=== PATIENT | male | born 1955 | race Caucasian/White ===

== ENCOUNTER 2019-05-31 13:28 | Outpatient (REF) | payer BC, SELFPAY ==
[2019-06-02 11:47] LABS: HSV 1 DNA Result Negative; HSV 2 DNA Result Negative
== END 2019-05-31 13:48 ==
LOC: NCHCN 13:28
PROVIDERS: PCP Internal Medicine; Visit Provider Specialist/Technologist Athletic Trainer
DX: R21 Rash and other nonspecific skin eruption (principal)
CPT/HCPCS: 87529

== ENCOUNTER 2020-06-05 07:04 | Outpatient (CLI) | payer OTHER, SELFPAY ==
[2020-06-07 11:16] LABS: Patient Race White
[2020-06-07 11:17] LABS: SARS-CoV-2 RNA Undetected (Undetected)
[2020-06-07 11:20] LABS: SARS-CoV-2 Specimen Source Nasopharynx
== END 2020-06-05 07:24 ==
PROVIDERS: PCP Internal Medicine; Visit Provider Internal Medicine
DX: Z11.59 Encounter for screening for other viral diseases (principal)
CPT/HCPCS: U0003

== ENCOUNTER 2021-04-04 18:14 | Outpatient (REF) | payer OTHER, SELFPAY ==
[2021-04-04 22:14] LABS: Calculated LDL 139 mg/dL (<100); Cholesterol 229 mg/dL (<200); HDL Cholesterol 64 mg/dL (40-60); Triglyceride 133 mg/dL (<150)
== END 2021-04-04 18:15 | disposition home or self-care (01) ==
LOC: NCHCN 18:14
PROVIDERS: PCP Internal Medicine; Visit Provider Internal Medicine
DX: Z00.00 Encounter for general adult medical examination without abnormal findings (principal); Z13.220 Encounter for screening for lipoid disorders
CPT/HCPCS: 80061

== ENCOUNTER 2021-06-26 11:00 | Emergency (ER) | payer OTHER, SELFPAY ==
[2021-06-26 11:05] VITALS: BP 140/81; PULSE 63; RESP 16; TEMP 36; O2SAT 95
--- NOTE | 2021-06-26 11:30 | DI.RAD_ITS ---
Exam(s) XR SHOULDER LT COMPLETE 2+V EXAM: XR SHOULDER LT COMPLETE 2+V CLINICAL HISTORY: shoulder and clavicle pain post fall with ecchymos. TECHNIQUE: 2D digital imaging was performed. COMPARISON: No exams were available for comparison FINDINGS: No evidence of fracture or dislocation of the glenohumeral joint although there are moderate degenera tive changes in the glenohumeral joint noted. The main finding here is an angulated fracture at the midshaft of the ipsilateral left clavicle. Deg enerative changes in the AC joint but no distraction of the AC joint. IMPRESSION: The main acute finding here is an angulated midshaft fracture of the left clavicle. DATA REPOSITORY: RADIATION DOSE DELIVERED:
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
== END 2021-06-26 12:49 | disposition home or self-care (01) ==
PROVIDERS: Emergency Provider Physician Assistant; PCP Internal Medicine
DX: S42.022A Displaced fracture of shaft of left clavicle, initial encounter for closed fracture (principal); V18.0XXA Pedal cycle driver injured in noncollision transport accident in nontraffic accident, initial encounter; Y93.55 Activity, bike riding
CPT/HCPCS: 23500; 73030

== ENCOUNTER 2021-07-05 11:19 | Outpatient (CLI) | payer OTHER, SELFPAY ==
--- NOTE | 2021-07-05 11:00 | DI.RAD_ITS ---
Exam(s) XR CLAVICLE LT LIMITED 1V EXAM: XR CLAVICLE LT LIMITED 1V CLINICAL HISTORY: left clavicle fracture TECHNIQUE: 2D digital imaging was performed of the left clavicle. One images were obtained. AP view s were obtained. COMPARISON: CR XR SHOULDER LT COMPLETE 2+V from 06/26/2021 CR XR SHOULDER LT COMPLETE 2+V from 06/26/2021 FINDINGS: BONES: There is again seen a fracture of the midshaft of the left clavicle. The apex of the fracture is directed cephalad. The fracture appears has a slightly more acute angle compared to the prior ex amination. No bony destructive lesion is seen. JOINTS: No dislocation present. SOFT TISSUE: Normal. IMPRESSION: Left clavicular fracture as described. DATA REPOSITORY: RADIATION DOSE DELIVERED:
== END 2021-07-05 11:20 | disposition home or self-care (01) ==
LOC: DIORS 11:19
PROVIDERS: PCP Internal Medicine; Referring Provider Internal Medicine; Visit Provider Physician Assistant Surgical
DX: S42.022A Displaced fracture of shaft of left clavicle, initial encounter for closed fracture (principal); X58.XXXA Exposure to other specified factors, initial encounter
CPT/HCPCS: 73000

== ENCOUNTER 2022-10-19 15:59 | Emergency (ER) | payer MEDICARE, BC, SELFPAY ==
--- NOTE | 2022-10-19 16:00 | DI.RAD_ITS ---
Exam(s) XR HAND LT COMPLETE XR WRIST LT COMPLETE EXAM: XR WRIST LT COMPLETE and XR hand LT complete CLINICAL HISTORY: fall ?fx. TECHNIQUE: 2D digital imaging was performed of the left wrist. Six images were obtained. PA, obliq ue and lateral views were obtained. COMPARISON: None. FINDINGS: BONES: There is a comminuted fracture of the distal left radius. There is a distal component which a ppears to extend to the radiocarpal joint. There is dorsal angulation and impaction of the fracture. No bony destructive lesion is seen. JOINTS: The carpal bones are normally aligned. SOFT TISSUE: There is soft tissue swelling of the wrist. IMPRESSION: Comminuted distal radial fracture as described above. DATA REPOSITORY: RADIATION DOSE DELIVERED:
[2022-10-19 16:03] VITALS: BP 170/89; PULSE 62; RESP 20; TEMP 36.8; O2SAT 96
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
--- NOTE | 2022-10-19 16:41 | DI.VRAD_ITS ---
PROCEDURE INFORMATION: Exam: XR Left Wrist Exam date and time: 10/19/2022 4:16 PM Age: 66 years old Clinical indication: Injury or trauma; Blunt trauma (contusions or hematomas); Wrist; Left; Patient HX: Fall, ? FX TECHNIQUE: Imaging protocol: Radiologic exam of the Left wrist. Views: 3 or more views. COMPARISON: No relevant prior studies available. FINDINGS: Bones/joints: Comminuted displaced impacted distal radius fracture.. Soft tissues: Soft tissue swelling of the wrist. IMPRESSION: 1. Comminuted displaced impacted distal radius fracture.. 2. Soft tissue swelling of the wrist. Dictated and Authenticated by: Sindhu Rojas MD. Ordering:FIDEL Parsons MD
--- NOTE | 2022-10-19 16:42 | DI.VRAD_ITS ---
PROCEDURE INFORMATION: Exam: XR Left Hand Exam date and time: 10/19/2022 4:19 PM Age: 66 years old Clinical indication: Injury or trauma; Blunt trauma (contusions or hematomas); Hand; Left; Patient HX: Fall, ? FX TECHNIQUE: Imaging protocol: Radiologic exam of the Left hand. Views: 3 or more views. COMPARISON: CR XR WRIST LT COMPLETE 10/19/2022 4:16 PM FINDINGS: Bones/joints: Comminuted displaced distal radius fracture. Soft tissues: Soft tissue swelling of the wrist IMPRESSION: Comminuted displaced distal radius fracture. Dictated and Authenticated by: Sindhu Rojas MD. Ordering:FIDEL Parsons MD
[2022-10-19] MEDS: ACETAMINOPHEN 1,000 MG/100 ML BTL 400 MG IVPB (17:14)
[2022-10-19 17:24] VITALS: BP 151/94; PULSE 69; RESP 14; O2SAT 97
--- NOTE | 2022-10-19 17:50 | DI.RAD_ITS ---
Exam(s) XR WRIST LT COMPLETE EXAM: XR WRIST LT COMPLETE CLINICAL HISTORY: Post reduction xray. TECHNIQUE: 2D digital imaging was performed of the left wrist. Three images were obtained. PA, obl ique and lateral views were obtained. COMPARISON: CR,XR XR WRIST LT COMPLETE from 10/19/2022 FINDINGS: The patient's wrist is now in a cast. BONES: There is again seen a comminuted and dorsally angulated distal radial fracture. There is pers istent mild dorsal angulation. There is also persistent mild impaction. No bony destructive lesion is seen. JOINTS: The carpal bones are normally aligned. Mild degenerative changes are seen in the wrist. SOFT TISSUE: There is soft tissue swelling present. IMPRESSION: Status post reduction of the distal radial fracture with persistent impaction and dorsal angulation. DATA REPOSITORY: RADIATION DOSE DELIVERED:
[2022-10-19 17:53] VITALS: BP 138/88; PULSE 66; RESP 16; O2SAT 99
[2022-10-19 18:18] VITALS: BP 136/77; PULSE 65; RESP 14; O2SAT 97
[2022-10-19 19:10] VITALS: BP 159/86; PULSE 61; RESP 18; O2SAT 95
--- NOTE | 2022-10-19 19:45 | DI.VRAD_ITS ---
PROCEDURE INFORMATION: Exam: XR Left Wrist Exam date and time: 10/19/2022 5:40 PM Age: 66 years old Clinical indication: Screening exam; Post-reduction; Patient HX: Post reduction TECHNIQUE: Imaging protocol: Radiologic exam of the Left wrist. Views: 3 or more views. COMPARISON: CR XR WRIST LT COMPLETE 10/19/2022 4:16 PM FINDINGS: Bones/joints: Post reduction of Colles fracture and application of fiberglass splint. There is still dorsal angulation of the distal radial epiphysis approximally 10-15 degrees. There is dorsal displacement of some of the comminuted fracture fragments. Mild foreshortening of the distal radius. Ulnar plus approximally 2 mm. Distal ulna is intact. Carpal bones without acute disruption. Osteoarthritis changes of the scaphoid trapezium and trapezium 1st metacarpal joint of [id number] severity. Soft tissues: Soft tissue swelling. IMPRESSION: 1. Post closed reduction of comminuted Colles fracture. Persistent displacement and dorsal angulation as described above. 2. 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 Dictated and Authenticated by: Damian Valadez MD. Ordering:FIDEL Parsons MD
== END 2022-10-19 19:09 | disposition home or self-care (01) ==
PROVIDERS: Emergency Provider Emergency Medicine; PCP Internal Medicine
DX: S52.502A Unspecified fracture of the lower end of left radius, initial encounter for closed fracture (principal); W00.0XXA Fall on same level due to ice and snow, initial encounter
CPT/HCPCS: 96374; 96375; 99284; 25605; 73110; 73130; J0131

== ENCOUNTER 2022-10-22 11:48 | Day surgery (SDC) | payer BC, SELFPAY ==
--- NOTE | 2022-10-22 11:06 | W.PM.DSUDISC ---
Date of service: 10/22/22 Time of Service: 13:13 Discharge Plan Disposition Patient Disposition: Home Condition: Good Discharge Details Reason For Visit: Left distal radius fracture Attending Provider: Reji Ramirez Primary Care Provider: Oleksandr Aguirre Home Meds and New Rx's Prescriptions: New hydrocodone-acetaminophen 5-325 mg tablet 1 tab PO Q6H PRN (Reason: severe pain) Qty: 3 0RF Rx Instructions: Take one tablet up to every 6 hours as needed for severe postoperative pain acetaminophen 500 mg tablet 500 mg PO Q6H PRN (Reason: pain) Qty: 60 2RF ibuprofen 600 mg tablet 600 mg PO TID PRN (Reason: pain) Qty: 60 0RF Discharge Instructions Additional Instructions: Closed Reduction and Cast Discharge Instructions Activity:?You should keep the hand/wrist elevated as much as possible for the first few days.? You may use the other fingers as tolerated but avoid trying to do too much too soon.? You may perform light activities with the cast in place. Dressing/Cast:?Your cast should stay in place at all times.? Do NOT get it wet.? Medications: -?You should take Tylenol and Ibuprofen for baseline pain control. - You were prescribed a narcotic, Hydrocodone, which you should take for breakthrough pain. - You may apply ice over the wrist, just double bag so it doesn't get wet. Follow-up:?10-14 days Referrals: Reji Ramirez MD [ [facility] STAFF PHYSICIAN] - Equipment/Supplies: Cast and Sling Activity:: Elevate Remove Dressings/Wound Care:: Do Not Remove Shower/Bathe:: Cover Diet:: As Tolerated Discharge Orders Discharge Orders: Discharge Order (Routine); Ordered 10/22/22 Ordered By: Thelma Austin
[2022-10-22 12:18] VITALS: BP 138/96; PULSE 65; RESP 16; TEMP 36.2; O2SAT 99
--- NOTE | 2022-10-22 12:41 | W.ANESPRE ---
General Info Date of Service Date Performed: 10/22/22 Height: 5 ft 10 in Weight: 78.471 kg Body Mass Index (BMI): 24.8 Surgical Procedure: Operation Date: 10/22/22 15:10 Proposed Procedure Side Surgeon p Closed Reduction of Wrist & Casting Left Reji Ramirez MD Meds Allergies and Home Medications Allergies Allergy/AdvReac Type Severity Reaction Status Date / Time No Known Allergies Allergy Unverified 10/21/22 14:20 Home Medication Medication Instructions Recorded Unknown [No Known Home Meds] 10/23/17 Current Visit Medications: Current Medications Generic Name Dose Route Start Last Admin Trade Name Freq PRN Reason Stop Dose Admin Acetaminophen 650 mg 10/22/22 11:02 Acetaminophen 325 Mg Tab PO Q4H PRN PRN Hydrocodone Bitart/Acetaminophen 0 tab 10/22/22 11:02 Hydrocodone 5/Acetaminophen 325 Tab PO Q3H PRN PRN Pain Ringer's Solution 1,000 mls @ 80 mls/hr 10/22/22 06:00 IV 11/20/22 23:59 INFUSION ADRIAN IV Miscellaneous Supplies 1 each 10/22/22 06:00 Iv Access IV 11/20/22 23:59 DIRECTED ADRIAN Sodium Chloride 0 ml 10/22/22 06:00 Normal Saline Flush 10 Ml Syr IV 11/20/22 23:59 PRN PRN Sodium Chloride 0 ml 10/22/22 06:00 Normal Saline 10 Ml Vial IJ 11/20/22 23:59 DIRECTED PRN Sterile Water 0 ml 10/22/22 06:00 Water,Injection,Sterile 10 Ml Vial IJ 11/20/22 23:59 DIRECTED PRN PFSH Active Problems Active Problems: Problem Status Onset Code Distal radius fracture, left S52.502A Clavicle fracture S42.009A Medical History Medical History (Updated 10/22/22 @ 12:58 by Thelma Austin) Disequilibrium Tubular adenoma of colon (10/29/17) Surgical History Surgical History Colonoscopy - MAC (10/23/17) Tobacco Smoking/Tobacco Use Status: Never Alcohol Alcohol Intake: current Alcohol intake frequency: a few times a week Substance Use Substance use: Never Substance use type: does not use Vital Signs and Lab Results Vital Signs Most Recent Vital Signs in EMR: Temp Pulse Resp BP Pulse Ox 36.2 C L 65 16 138/96 H 99 10/22/22 12:18 10/22/22 12:18 10/22/22 12:18 10/22/22 12:18 10/22/22 12:18 Lab Results Blood Type / Crossmatch: No Data to Display Complete Blood Count: No Data to Display Complete Metabolic Panel: No Data to Display Liver Function Panel: No Data to Display Coagulation Panel: No Data to Display Cardiac Panel: No Data to Display Arterial Blood Gas: No Data to Display Venous Blood Gas: No Data to Display Pancreas Panel: No Data to Display Thyroid Panel: No Data to Display Infectious Disease: No Data to Display Blood Cultures: No Data to Display Toxicology Panel: No Data to Display Anesthesia Assessment and Plan Anesthesia History Personal History: No History of Anesthesia Complications Family History: No Family History of Anesthesia Complications Exercise Tolerance Exercise Tolerance: Metabolic Equivalents>4 Cardiac & Pulmonary Exam Cardiac Exam: Normal S1/S2 Heart Sounds Pulmonary Exam: Clear Bilateral Breath Sounds Implantable Cardiac Device Does patient have a Pacemaker or an ICD?: No Airway Exam Known Difficult Airway: No Mallampati Class: 3 Mouth Opening: Narrow (< 3cm) Thyromental Distance: Greater than 3 cm Neck Range of Motion: Full ROM Neck Circumference: Normal Teeth Condition: Normal Dentition ASA Classification ASA Score: ASA 2 Emergency Case?: No NPO Status NPO Status: NPO Clears >2 hours, Solids >8 hours Anesthesia Plan Resuscitation Status: Full Code Anesthesia Technique: General Anesthesia Airway Planned: Natural Airway Monitors Used: Standard Monitors Preoperative Comments:: 66 yo male with left radius fracture to OR for closed reduction. Sig PMHx: never smoker, occ EtOH, denies major. Previous Anes: - colo with prop, glyco for HR. Plan: GA natural airway, LMA back up.
[2022-10-22] MEDS: Lactated Ringers 1,000 ML 80 ML IV (12:45)
[2022-10-22 12:54] VITALS: BMI 24.8
--- NOTE | 2022-10-22 12:55 | HPE_ITS ---
Documented by User: Thelma Brumfieldxon 11/13/22 15:15 Assessment and Plan Assessment and plan (1) Distal radius fracture, left: Status: Acute Assessment and plan: Plan: Reviewed pre- and post-reduction x-rays from ER visit on 10/19/22 which show continued dorsally angulated, transverse distal radius fracture with intraarticular involvement; no additional acute bony abnormalities are noted. Discussed x-ray findings with patient in detail. He denies any recent Covid-19 infection. Educated patient on surgery covering surgical technique, recovery process, benefits and risks including but not limited to risk of infection, blood clot, damage to soft tissue/blood vessels/nerves in detail. After discussion patient gives verbal understanding of risks and elects to proceed with scheduling surgery. Patient had opportunity to have questions answered to their satisfaction. They will contact office if issues arise. Patient will continue with for left wrist closed reduction and casting with associated procedures with Dr. Ramirez. History of Present Illness Narrative: Mr. Okeefe is a 66-year-old male who presents to hospital for left wrist closed reduction with Dr. Ramirez. Reports he had a slip and fall on the ice while skating 3 days ago. Due to discomfort and deformity he presented to the ER at which time a reduction was attempted, he was splinted and encouraged to follow- up with orthopedics. Based on his x-rays it was recommended by Dr. Ramirez that he undergo closed reduction and casting. Denies additional falls or injuries. Denies numbness or tingling. Review of Systems Cardiovascular Cardiovascular: Denies chest pain and Denies dyspnea Respiratory Respiratory: Denies cough and Denies dyspnea PFSH All Active Problems (Updated 10/30/22 @ 10:42 by AMERICA Lui) Post-operative pain (Acute) Distal radius fracture, left (Acute 10/19/22) S/P Closed reduction: 10/24/2022 Clavicle fracture (Acute) Medical History (Updated 10/30/22 @ 10:42 by AMERICA Lui) Disequilibrium Tubular adenoma of colon (10/29/17) Surgical History (Updated 10/30/22 @ 10:43 by AMERICA Lui) Colonoscopy - MAC (10/23/17) Social History Smoking/Tobacco Use Status: Never Smoking risk assessment performed?: Yes Alcohol Intake: current Alcohol Intake frequency: a few times a week Drug use: Never Substance use type: does not use Do you feel safe at home: Yes Do you feel safe in your relationship?: Yes Meds Allergies and Home Medications Allergies Allergy/AdvReac Type Severity Reaction Status Date / Time No Known Allergies Allergy Verified 11/13/22 08:59 Home Medications Medication Instructions Recorded Confirmed Type acetaminophen 500 mg tablet 500 mg PO Q6H PRN pain #60 tabs 10/22/22 11/13/22 Rx ibuprofen 600 mg tablet 600 mg PO TID PRN pain #60 tabs 10/22/22 11/13/22 Rx Exam Const General: cooperative and no acute distress Resp Effort & Inspection: normal respiratory effort and able to speak in complete se ntences Auscultation: clear to auscultation bilaterally, no rales, no rhonchi and no wheezes Cardio Heart Sounds: S1 normal and S2 normal Results Last Vital Signs Temp 97.2 F L 10/22/22 12:18 Pulse 65 10/22/22 12:18 Resp 16 10/22/22 12:18 BP 138/96 H 10/22/22 12:18 Pulse Ox 99 10/22/22 12:18 Documented by User: Reji Ramirez MD 11/14/22 07:19 Assessment and Plan Assessment and plan (1) Distal radius fracture, left: Status: Acute Assessment and plan: Plan: Reviewed pre- and post-reduction x-rays from ER visit on 10/19/22 which show continued dorsally angulated, transverse distal radius fracture with intraarticular involvement; no additional acute bony abnormalities are noted. Discussed x-ray findings with patient in detail. He denies any recent Covid-19 infection. Educated patient on surgery covering surgical technique, recovery process, benefits and risks including but not limited to risk of infection, blood clot, damage to soft tissue/blood vessels/nerves in detail. After discussion patient gives verbal understanding of risks and elects to proceed with scheduling surgery. Patient had opportunity to have questions answered to their satisfaction. They will contact office if issues arise. Patient will continue with for left wrist closed reduction and casting with associated procedures with Dr. Ramirez. I interviewed and examined the patient with Thelma Austin PA-C. I agree with the documentation as above. The assessment and plan were formulated with my direct involvement. Marcus is a 66-year-old who has a displaced distal radius fracture. Given his active lifestyle recommend we proceed with closed reduction and casting. I reviewed the risk of the procedure to include pain, stiffness, malunion, nonunion, loss of reduction, need for repeat procedures. Despite these risk, he elects to proceed. Reji Ramirez MD FAAOS FAAHKS PFSH All Active Problems (Updated 10/30/22 @ 10:42 by AMERICA Lui) Post-operative pain (Acute) Distal radius fracture, left (Acute 10/19/22) S/P Closed reduction: 10/24/2022 Clavicle fracture (Acute) Medical History (Updated 10/30/22 @ 10:42 by AMERICA Lui) Disequilibrium Tubular adenoma of colon (10/29/17) Surgical History (Updated 10/30/22 @ 10:43 by AMERICA Lui) Colonoscopy - MAC (10/23/17) Social History Smoking/Tobacco Use Status: Never Smoking risk assessment performed?: Yes Alcohol Intake: current Alcohol Intake frequency: a few times a week Drug use: Never Substance use type: does not use Do you feel safe at home: Yes Do you feel safe in your relationship?: Yes Meds Allergies and Home Medications Allergies Allergy/AdvReac Type Severity Reaction Status Date / Time No Known Allergies Allergy Verified 11/13/22 08:59 Home Medications Medication Instructions Recorded Confirmed Type acetaminophen 500 mg tablet 500 mg PO Q6H PRN pain #60 tabs 10/22/22 11/13/22 Rx ibuprofen 600 mg tablet 600 mg PO TID PRN pain #60 tabs 10/22/22 11/13/22 Rx
--- NOTE | 2022-10-22 13:30 | DI.RAD_ITS ---
Exam(s) XR WRIST LT LIMITED EXAM: XR WRIST LT LIMITED CLINICAL HISTORY: Left Distal Radius Fracture. TECHNIQUE: 2D digital imaging was performed. COMPARISON: No exams were available for comparison FINDINGS: Fluoroscopy was provided during close reduction of wrist fracture. See procedure report for details. IMPRESSION: Radiation exposure index: Ka,r= 0.0377mGy DATA REPOSITORY: RADIATION DOSE DELIVERED:
[2022-10-22 15:09] VITALS: BP 123/73; PULSE 68; RESP 16; TEMP 36.5; O2SAT 96
--- NOTE | 2022-10-22 15:11 | W.ANESPOSTOP ---
Postoperative Evaluation Date, Time and Location Date Performed: 10/22/22 Time Performed: 15:11 Patient Location: Day Surgery Unit Vital Signs Most Recent Imported Vital Signs: Most Recent Vital Signs Temp Pulse Resp BP Pulse Ox 36.5 C 68 16 123/73 96 10/22/22 15:09 10/22/22 15:09 10/22/22 15:09 10/22/22 15:09 10/22/22 15:09 Pain Score Most Recent Pain Score: Most Recent Pain Score Pain Level 0 10/22/22 15:09 Assessment Mental Status: Awake (Alert & Oriented to Patient Baseline) Airway and Respiratory Function: Patent airway with normal (patient baseline) respiratory exam Cardiovascular Function: Hemodynamically Stable Hydration Status: Adequately Hydrated Nausea & Vomiting: No Nausea or Vomiting Pain: Pain is tolerable per patient Peripheral Nerve Block: Patient did not receive a nerve block
[2022-10-22 15:12] VITALS: BP 117/80; PULSE 55; RESP 16; TEMP 36.7; O2SAT 97
--- NOTE | 2022-10-24 14:53 | ROE_ITS ---
Date of service: 10/22/22 Time of Service: 14:30 Operative Note Operative Note DATE OF PROCEDURE: 10/22/22 PRE-OP DIAGNOSIS: Left Distal Radius Fracture POST-OP DIAGNOSIS: same PROCEDURE: Close reduction and casting of left distal radius fracture SURGEON: Reji Ramirez ANESTHESIA TYPE: General:No Airway Refer to Anesthesia Record ESTIMATED BLOOD LOSS: 0 TOURNIQUET TIME: 0 COMPLICATIONS: None Indications: Marcus is a 66-year-old who suffered a fall onto his outstretched left hand while skating. He had a notable deformity of the left wrist seen in the emergency department and attempted closed reduction. He had persistent deformity therefore I recommend we proceed with a closed reduction and casting. Discussed other alternatives such as operative fixation. He agrees to proceed w ith closed reduction after reviewing the risk to include loss of reduction, malunion, nonunion, cast complications, need for repeat procedures. Findings: There is a dorsally displaced intra-articular fracture of the left distal radius which is reduced with closed means, confirmed with fluoroscopy. Procedure Description: Marcus is a 66-year-old who was greeted the preoperative holding area. His identity was confirmed the correct side was identified and marked. The consent was reviewed the patient and signed. History and physical was updated. He was taken to the operating room placed in supine position with all bony problems well-padded. A general, uninstrumented airway, anesthetic was then administered. A timeout was performed for safe surgery. No prophylactic antibiotics were necessary. The previous splint was removed. A gentle closed reduction was first performed. Some countertraction was applied with recreation of the deformity and then reduction. Fluoroscopy showed adequate reduction of the fracture fragments. I then placed the hand into finger traps to provide traction. With the hand in this position, I then placed him into a short arm cast. While the cast was setting up I then placed a three-point mold on the cast to encourage appropriate fracture reduction. This was confirmed with fluoroscopy. Final x-rays were obtained outside the finger traps which showed adequate and near anatomic reduction of the. He was transferred back to the PACU in stable condition.
== END 2022-10-22 11:49 | disposition home or self-care (01) ==
PROVIDERS: PCP Internal Medicine; Visit Provider Student in an Organized Health Care Education/Training Program
PROC: (CPT 25605; principal; 2022-10-22 15:00)
DX: S52.572A Other intraarticular fracture of lower end of left radius, initial encounter for closed fracture (principal); W00.0XXA Fall on same level due to ice and snow, initial encounter
CPT/HCPCS: 25605; 76000; 73100; J1100; J2405

== ENCOUNTER 2022-10-25 20:13 | Emergency (ER) | payer MEDICARE, SELFPAY ==
[2022-10-25 20:17] VITALS: BP 161/77; PULSE 78; RESP 16; TEMP 36.8; O2SAT 96
--- NOTE | 2022-10-25 20:25 | W.ED.GENAD ---
Discharge Plan Disposition Patient Disposition: Home Condition: Stable Discharge Details Clinical Impression: Post-operative pain, H/O reduction of closed fracture, History of wrist fracture Primary Care Provider: Oleksandr Aguirre ED Provider: Opal Morillo Home Meds and New Rx's Prescriptions: Continued hydrocodone-acetaminophen 5-325 mg tablet 1 tab PO Q6H PRN (Reason: severe pain) Qty: 3 0RF Rx Instructions: Take one tablet up to every 6 hours as needed for severe postoperative pain acetaminophen 500 mg tablet 500 mg PO Q6H PRN (Reason: pain) Qty: 60 2RF ibuprofen 600 mg tablet 600 mg PO TID PRN (Reason: pain) Qty: 60 0RF Discharge Instructions Instructions: Wrist Fracture in Adults (ED), Closed Reduction (ED) Additional Instructions: It is not unusual to still have swelling and pain 3 days after closed reduction of a fracture. Rest, ice, and elevate the affected area as much as possible. Alternate tylenol and motrin as needed and directed for pain. Take your Vicodin that you have at home as needed and directed for pain not relieved with Tylenol and Motrin. You can try [id number] Colace, MiraLAX, suppositories or prune juice to help with and prevent constipation. Follow-up with orthopedics for reevaluation as scheduled. Call orthopedics with any concerns or questions. Return immediately to the emergency department if you develop any worsening or new concerning symptoms if you develop any worsening pain, swelling or any other concerns. Referrals: Reji Ramirez MD [ [facility] STAFF PHYSICIAN] - Discharge Data Discharge Date/Time-TO BE ENTERED AT DEPARTURE: 10/25/22 21:12 Discharge Physician: Opal Morillo Medical Decision Making 66-year-old male with history of left distal radius fracture reduced and splinted in the ED on 10/19 noted to have persistent deformity on follow-up with orthopedics and referred for closed reduction and splinting with Dr. Ramirez on 10/22 presents for persistent pain and swelling. His blood pressure is moderately hypertensive. Recheck oral temperature 98.6. Left forearm cast appears intact. Patient has mild to moderate swelling of fingers of left hand but this does not seem unexpected as he is 3 days postoperative. He has normal range of motion of fingers of hand without significant pain. Normal capillary refill. Temperature and color of left hand is similar to right hand and without cyanosis. Discussed with patient at length that his exam does not appear unusual or unexpected as he is only 3 days postoperative from his closed reduction. Also discussed that as he has had 2 reductions within the past 6 days, it would not be unusual for him to still have pain and swelling. I discussed the case with Dr. Ramirez and agrees with plan for patient to continue rest and elevation. I discussed that I do not see an indication for cutting of the cast at this time. I informed patient that if he develops worsening pain or swelling, to return to the emergency department if unable to contact orthopedics for splitting of the cast at that time if indicated. Discussed with patient that he can take Vicodin that he has at home if he develops worsening pain and to take along with Colace, MiraLAX or prune juice to help with constipation. Advised to follow-up with orthopedics when indicated. Usual and customary return precautions given prior to discharge. Medical Records Medical records reviewed: Yes I reviewed the patient's medical records. HPI General Mode of arrival: ambulatory. Date/Time Provider Initiated Documentation: 10/25/22 20:16. Limitations to Documentation: no limitations. Information obtained by: patient. HPI Narrative: Patient is a 66-year-old male who sustained a distal radius fracture on 10/19/2022 which was reduced and splinted in the emergency department and patient followed up with orthopedics who noted that he had persistent displacement and dorsal angulation and was referred for closed reduction and splinting in the OR with Dr. Ramirez on 10/22/2022 presents today for persistent pain and swelling. Patient states he has been taking ibuprofen for pain relief which had been helping until tonight. He denies any worsening of pain or swelling but states he expected it would be improving by now. Patient states he has Vicodin at home to take as needed for pain but states he not take it. He states he has had constipation with opiates in the past so he states he prefers not to take Vicodin. Patient states he also called orthopedics yesterday as he thought he had a fever. Patient states he did not check his temperature but thought his ears and forehead were warm. Pt states he called orthopedics yesterday to report that he thought he had a fever but states he did not call orthopedics today. Related Data Home Medications Medication Instructions Recorded Confirmed acetaminophen 500 mg tablet 500 mg PO Q6H PRN pain #60 tabs 10/22/22 10/25/22 hydrocodone 5 mg-acetaminophen 325 1 tab PO Q6H PRN severe pain #3 10/22/22 10/25/22 mg tablet tabs ibuprofen 600 mg tablet 600 mg PO TID PRN pain #60 tabs 10/22/22 10/25/22 Previous Rx's Medication Instructions Recorded acetaminophen 500 mg tablet 500 mg PO Q6H PRN pain #60 tabs 10/22/22 hydrocodone 5 mg-acetaminophen 325 1 tab PO Q6H PRN severe pain #3 10/22/22 mg tablet tabs ibuprofen 600 mg tablet 600 mg PO TID PRN pain #60 tabs 10/22/22 Allergies Allergy/AdvReac Type Severity Reaction Status Date / Time No Known Allergies Allergy Unverified 10/21/22 14:20 General Stated Complaint: Orthopedic MARCELO: 3 Review of Systems All systems reviewed & are unremarkable except as noted in HPI and below Constitutional Constitutional: Reports as per HPI, Denies chills and Denies fever(s) Eyes Eyes: Denies blurry vision ENT Ears, Nose, Mouth, and Throat: Denies dizziness, Denies sore throat and Denies throat swelling Cardiovascular Cardiovascular: Denies chest pain and Denies dyspnea Respiratory Respiratory: Denies cough and Denies dyspnea Gastrointestinal Gastrointestinal: Denies abdominal pain, Denies diarrhea and Denies vomiting Genitourinary Genitourinary: Denies hematuria and Denies dysuria Musculoskeletal Musculoskeletal: Denies back pain and Denies numbness Comments: Left wrist pain. Swelling in left hand. Integumentary/Breasts Skin/Breast: Denies lesions and Denies rash Neurologic Neurologic: Denies dizziness, Denies localized weakness and Denies numbness Allergic/Immunologic Allergic/Immunologic: Denies throat swelling PFSH All Active Problems (Updated 10/25/22 @ 20:54 by Opal Morillo DO) Post-operative pain (Acute) H/O reduction of closed fracture (Acute) History of wrist fracture (Acute) Distal radius fracture, left (Acute 10/19/22) Clavicle fracture (Acute) Medical History (Updated 10/25/22 @ 20:54 by Opal Morillo DO) Disequilibrium Tubular adenoma of colon (10/29/17) Surgical History Colonoscopy - MAC (10/23/17) Social History Smoking/Tobacco Use Status: Never Smoking risk assessment performed?: Yes Alcohol Intake: current Alcohol Intake frequency: a few times a week Drug use: Never Substance use type: does not use Do you feel safe at home: Yes Do you feel safe in your relationship?: Yes Exam Const General: cooperative and no acute distress Orientation: alert, awake and oriented x3 HENMT Head: normal to inspection Mouth: oral mucosae normal Eyes General: appearance normal, both eyes and all related structures Neck Neck: normal visual inspection Resp Effort & Inspection: normal respiratory effort and able to speak in complete sentences Cardio Rate: regular rate Skin General skin exam: no rashes or lesions noted Neuro General: patient alert, patient awake and patient oriented x3 Motor: muscle tone normal throughout Extrem Other: Left wrist cast appears intact. There is mild to moderate amount of swelling noted to Left hand with normal capillary refill. Normal range of motion of fingers of left hand without significant pain with range of motion. Normal pink skin color without cyanosis or crepitus of left hand. Psych Appearance: grossly normal Affect: normal affect Course Vital Signs Vital signs: Vital Signs Temperature 98.2 F 10/25/22 20:17 Pulse 78 10/25/22 20:17 Respiratory Rate 16 10/25/22 20:17 Blood Pressure 161/77 H 10/25/22 20:17 Pulse Oximetry 96 10/25/22 20:17 Temperature 98.2 F 10/25/22 20:17 Pulse 78 10/25/22 20:17 Respiratory Rate 16 10/25/22 20:17 Blood Pressure 161/77 H 10/25/22 20:17 Blood Pressure Position Sitting 10/25/22 20:17 Pulse Oximetry 96 10/25/22 20:17 Oxygen Delivery Method Room Air 10/25/22 20:17 Oxygen Flow Rate 0 10/25/22 20:17 Pain Level 7 10/25/22 20:17
--- NOTE | 2022-10-26 08:53 | NUR.NOTE ---
Nursing Note: Accessed chart for [facility] billing purposes.
== END 2022-10-25 21:12 | disposition home or self-care (01) ==
PROVIDERS: Emergency Provider Physician Assistant; PCP Internal Medicine
DX: G89.18 Other acute postprocedural pain (principal); S52.592D Other fractures of lower end of left radius, subsequent encounter for closed fracture with routine healing; X58.XXXD Exposure to other specified factors, subsequent encounter
CPT/HCPCS: 99281; 99283

== ENCOUNTER 2022-10-30 10:18 | Outpatient (CLI) | payer MEDICARE, SELFPAY ==
--- NOTE | 2022-10-30 10:15 | DI.RAD_ITS ---
Exam(s) XR WRIST LT LIMITED EXAM: XR WRIST LT LIMITED CLINICAL HISTORY: S/P CLOSED REDUCTION L DISTAL RADIUS FRACTURE. TECHNIQUE: 2D digital imaging was performed. COMPARISON: CR,XR XR WRIST LT COMPLETE from 10/19/2022 FINDINGS: Two views; taken through cast material There is satisfactory position alignment of the distal radius fracture. Is improvement in that there is presently no significant dorsal angulation. Scapholunate distance normal. No significant ulnar variance. IMPRESSION: Improved alignment. DATA REPOSITORY: RADIATION DOSE DELIVERED:
== END 2022-10-30 10:19 | disposition home or self-care (01) ==
LOC: DIORS 10:19
PROVIDERS: PCP Internal Medicine; Referring Provider Internal Medicine; Visit Provider Student in an Organized Health Care Education/Training Program
DX: S52.502D Unspecified fracture of the lower end of left radius, subsequent encounter for closed fracture with routine healing (principal); X58.XXXD Exposure to other specified factors, subsequent encounter
CPT/HCPCS: 73100

== ENCOUNTER 2022-11-06 11:56 | Outpatient (CLI) | payer MEDICARE, SELFPAY ==
--- NOTE | 2022-11-06 08:45 | DI.RAD_ITS ---
Exam(s) XR WRIST LT LIMITED EXAM: XR WRIST LT LIMITED INDICATION: f/u L wrist frx. COMPARISON: CR,XR XR WRIST LT COMPLETE from 10/19/2022 CR XR WRIST LT LIMITED from 10/22/2022 CR XR WRIST LT LIMITED from 10/30/2022 TECHNIQUE: 2D digital imaging was performed. Two views. FINDINGS: A cast is again noted. There is been no change in the alignment the distal radial fracture. DATA REPOSITORY: RADIATION DOSE DELIVERED:
== END 2022-11-06 11:57 | disposition home or self-care (01) ==
LOC: DIORS 11:56
PROVIDERS: PCP Internal Medicine; Referring Provider Internal Medicine; Visit Provider Student in an Organized Health Care Education/Training Program
DX: S52.502D Unspecified fracture of the lower end of left radius, subsequent encounter for closed fracture with routine healing (principal); X58.XXXD Exposure to other specified factors, subsequent encounter
CPT/HCPCS: 73100

== ENCOUNTER 2022-11-13 09:20 | Outpatient (CLI) | payer MEDICARE, SELFPAY ==
--- NOTE | 2022-11-13 08:45 | DI.RAD_ITS ---
Exam(s) XR WRIST LT LIMITED EXAM: XR WRIST LT LIMITED CLINICAL HISTORY: f/u L DISTAL RADIUS FRACTURE. TECHNIQUE: 2D digital imaging was performed. COMPARISON: CR XR WRIST LT LIMITED from 11/06/2022 FINDINGS: Two in cast views: Stable position and alignment at the fracture site in the distal radius. No significant change 11/06. No significant ulnar variance. No obvious fracture of the distal ulna. IMPRESSION: Stable appearance, unchanged from 11/06/2022. DATA REPOSITORY: RADIATION DOSE DELIVERED:
== END 2022-11-13 09:21 | disposition home or self-care (01) ==
LOC: DIORS 09:21
PROVIDERS: PCP Internal Medicine; Referring Provider Internal Medicine; Visit Provider Student in an Organized Health Care Education/Training Program
DX: S52.502D Unspecified fracture of the lower end of left radius, subsequent encounter for closed fracture with routine healing (principal); X58.XXXD Exposure to other specified factors, subsequent encounter
CPT/HCPCS: 73100

== ENCOUNTER 2022-12-04 08:31 | Outpatient (CLI) | payer MEDICARE, SELFPAY ==
--- NOTE | 2022-12-04 08:15 | DI.RAD_ITS ---
Exam(s) XR WRIST LT LIMITED EXAM: XR WRIST LT LIMITED CLINICAL HISTORY: f/u L DISTAL RADIUS FX. TECHNIQUE: 2D digital imaging was performed of the left wrist. Two images were obtained. PA and la teral views were obtained. COMPARISON: CR XR WRIST LT LIMITED from 11/06/2022 CR XR WRIST LT LIMITED from 11/13/2022 FINDINGS: BONES: There has been no change in alignment of the distal left radial fracture. No new fractures id entified. No bony destructive lesion is seen. JOINTS: The carpal bones are normally aligned. SOFT TISSUE: Soft tissue swelling of the wrist. The cast has been removed. IMPRESSION: Stable distal radial fracture. DATA REPOSITORY: RADIATION DOSE DELIVERED:
== END 2022-12-04 08:32 | disposition home or self-care (01) ==
LOC: DIORS 08:31
PROVIDERS: PCP Internal Medicine; Referring Provider Internal Medicine; Visit Provider Physician Assistant
DX: S52.502D Unspecified fracture of the lower end of left radius, subsequent encounter for closed fracture with routine healing (principal); X58.XXXD Exposure to other specified factors, subsequent encounter
CPT/HCPCS: 73100

== ENCOUNTER 2024-02-08 10:52 | Outpatient (REF) | payer MEDICARE, SELFPAY ==
[2024-02-08 14:30] LABS: Abs Immature Grans 0.01 10^3/uL (0.0-0.06); Absolute Basophil Count 0.04 10^3/uL (0.0-0.2); Absolute Eosinophil Count 0.17 10^3/uL (0.0-0.7); Absolute Lymphocyte Count 1.55 10^3/uL (1.2-3.4); Absolute Monocyte Count 0.53 10^3/uL (0.1-0.8); Basophils % 0.8 %; Eosinophils % 3.5 %; HCT 47.8 % (40.0-50.0); HGB 15.8 g/dL (13.5-17.5); Immature Grans % 0.2 %; Lymphocytes % 32.3 %; MCH 29.4 pg (27.0-33.0); MCHC 33.1 % (32.0-36.0); MCV 89 fL (80-95); MPV 10.4 fL (8.0-11.0); Neutrophils % 52.2 %; Platelet Count 231 10^3/uL (130-400); RBC 5.37 10^6/uL (4.36-5.78); RDW-SD 42.8 fL
[2024-02-08 14:52] LABS: ALT 27 U/L (16-63); AST 18 U/L (15-37); Albumin 3.9 g/dL (3.4-5.0); Alkaline Phosphatase 131 U/L (46-116); Anion Gap 7.1 mmol/L (3-11); BUN 16 mg/dL (7-18); Bilirubin, Total 1.8 mg/dL (0.2-1.0); CO2 30.9 mmol/L (21.0-32.0); Calcium 9.1 mg/dL (8.5-10.1); Chloride 105 mmol/L (98-107); Estimated GFR 82.49 (mL/min/1.73m2); Glucose 95 mg/dL (74-106); Potassium 4.9 mmol/L (3.5-5.1); Sodium 143 mmol/L (136-145); TSH (W/Ref FT4) 1.79 uIU/mL (0.36-3.74); Total Protein 6.8 g/dL (6.4-8.2)
[2024-02-18 13:39] LABS: Testosterone, Free 17.2 ng/dL (3.47-13.0); Testosterone, Total 768 ng/dL (240-950)
== END 2024-02-08 10:53 | disposition home or self-care (01) ==
LOC: NCHCN 10:52
PROVIDERS: PCP Internal Medicine; Visit Provider Family Medicine
DX: Z00.00 Encounter for general adult medical examination without abnormal findings (principal)
CPT/HCPCS: 80053; 84402; 84403; 84443; 85025

== ENCOUNTER 2025-03-06 15:58 | Outpatient (REF) | payer MEDICARE, SELFPAY ==
[2025-03-06 15:13] LABS: ALT 42 U/L (16-63); AST 24 U/L (15-37); Albumin 3.7 g/dL (3.4-5.0); Alkaline Phosphatase 133 U/L (46-116); Anion Gap 4.8 mmol/L (3-11); BUN 20 mg/dL (7-18); Bilirubin, Total 1.9 mg/dL (0.2-1.0); CO2 31.2 mmol/L (21.0-32.0); CREATININE 0.9 mg/dL (0.70-1.30); Calcium 8.9 mg/dL (8.5-10.1); Calculated LDL 122 mg/dL (<100); Chloride 103 mmol/L (98-107); Cholesterol 198 mg/dL (<200); Estimated GFR 93.03 (mL/min/1.73m2); Glucose 89 mg/dL (74-106); HDL Cholesterol 65 mg/dL (>or=40); Potassium 4.4 mmol/L (3.5-5.1); Sodium 139 mmol/L (136-145); Total Protein 6.6 g/dL (6.4-8.2); Triglyceride 59 mg/dL (<150)
== END 2025-03-06 15:59 | disposition home or self-care (01) ==
LOC: NCHCN 15:58
PROVIDERS: PCP Internal Medicine; Visit Provider Family Medicine
DX: E78.5 Hyperlipidemia, unspecified (principal)
CPT/HCPCS: 80053; 80061